=== PATIENT | male | born 1970 | race Caucasian/White ===

== ENCOUNTER → 2020-11-01 | Outpatient (REF) | payer OTHER ==
[2020-11-01 17:53] LABS: BACTERIA, URINE AUTO NEGATIVE (NEGATIVE); RBC, URINE AUTO 0 /HPF (0-3); SQUAMOUS EPITHELIAL CELL UR AU 0 /HPF (0-6); WBC, URINE AUTO 0 /HPF (0-3)
== END ==
LOC: M LAB REF 17:16
PROVIDERS: ATTEND Internal Medicine Nephrology
DX: N18.31 Chronic kidney disease, stage 3a (principal)

== ENCOUNTER → 2021-01-17 | Outpatient (REF) | LOC: M LAB LCGH 10:14 | PROVIDERS: ATTEND Internal Medicine | DX: Z00.00 Encounter for general adult medical examination without abnormal findings (principal) ==

== ENCOUNTER → 2021-03-15 | Outpatient (CLI) | payer BC, OTHER ==
[~2021-03-15] MED LIST: ALLO300T2; LOSA100T50; MECL-86; METO1TAB7; MULT1TAB7 PO
--- NOTE | 2021-03-15 09:12 | REP ---
INDICATION: SPLENOMEGALY. COMPARISON: None. TECHNIQUE: Real-time sonographic evaluation of the left upper quadrant attention spleen FINDINGS: The spleen measures 10.7 x 3.3 x 10.3 cm. There is no evidence of splenomegaly or free fluid in left upper quadrant. The right kidney was seen to measure 11.1 x 5.1 x 5.3 cm. In the superior pole region there is a complex elongated 2 x 1 x 1.1 cm sized mixed but predominantly hypoechoic structure which exhibits some posterior wall enhancement and increased through transmission. IMPRESSION: 1. There is no evidence of splenomegaly. 2. Complex appearing cyst superior pole left kidney. Pre and postcontrast enhanced CT is recommended for complete evaluation. <Electronically signed by Nathan Vo > 03/15/21 [id number]
== END ==
LOC: M RAD 08:44
PROVIDERS: ATTEND Internal Medicine Hematology & Oncology
DX: N28.1 Cyst of kidney, acquired (principal)

== ENCOUNTER → 2021-07-31 | Outpatient (CLI) | payer BC, OTHER ==
[~2021-07-31] MED LIST changes: -ALLO300T2; +ALLO300T2 PO; +LOSA100T45 PO; -LOSA100T50; -MECL-86; +MECL-86 PO; -METO1TAB7; +METO1TAB7 PO
== END ==
LOC: M RAD 10:20
PROVIDERS: ATTEND Specialist
DX: N28.1 Cyst of kidney, acquired (principal)

== ENCOUNTER → 2021-08-15 | Outpatient (CLI) | payer BC, OTHER | LOC: M LAB 10:14 | PROVIDERS: ATTEND Internal Medicine | DX: Z12.5 Encounter for screening for malignant neoplasm of prostate (principal) ==

== ENCOUNTER → 2021-08-15 | Outpatient (CLI) | payer BC, OTHER ==
[2021-08-15 12:40] LABS: BASO # 0.1 10^3/uL (0.0-0.2); BASO % 0.9 % (0.0-1.0); EOS # 0.2 10^3/uL (0.0-0.5); HEMATOCRIT 50.2 % (42.0-52.0); HEMOGLOBIN 16.2 g/dl (13.5-17.5); LYMPH # 1.8 10^3/uL (1.5-5.0); LYMPH % 32.4 % (24.0-44.0); MEAN CORPUSCULAR HEMOGLOBIN 29.1 pg (27.0-33.0); MEAN CORPUSCULAR HGB CONC 32.3 g/dl (32.0-36.5); MEAN CORPUSCULAR VOLUME 90.1 fl (80.0-96.0); MONO # 0.6 10^3/uL (0.0-0.8); MONO % 11.2 % (2.0-8.0); NEUTROPHILS % 52.3 % (36.0-66.0); PLATELET COUNT, AUTOMATED 212 10^3/uL (150-450); RED BLOOD COUNT 5.57 10^6/uL (4.30-6.10); WHITE BLOOD COUNT 5.7 10^3/uL (4.0-10.0)
[2021-08-19 19:07] LABS: ERYTHROPOIETIN 15.7 mIU/mL (2.6-18.5)
== END ==
LOC: M LAB 10:11
PROVIDERS: ATTEND Internal Medicine Hematology & Oncology
DX: D58.2 Other hemoglobinopathies (principal)

== ENCOUNTER → 2021-09-19 | Outpatient (CLI) | payer BC, OTHER ==
[2021-09-19 11:49] LABS: BASO # 0.1 10^3/uL (0.0-0.2); BASO % 0.9 % (0.0-1.0); EOS # 0.1 10^3/uL (0.0-0.5); EOS % 2.4 % (0.0-3.0); HEMATOCRIT 53.6 % (42.0-52.0); HEMOGLOBIN 17.4 g/dl (13.5-17.5); LYMPH # 1.6 10^3/uL (1.5-5.0); LYMPH % 27.9 % (24.0-44.0); MEAN CORPUSCULAR HEMOGLOBIN 28.8 pg (27.0-33.0); MEAN CORPUSCULAR HGB CONC 32.5 g/dl (32.0-36.5); MEAN CORPUSCULAR VOLUME 88.7 fl (80.0-96.0); MONO # 0.6 10^3/uL (0.0-0.8); MONO % 9.7 % (2.0-8.0); NEUTROPHILS # 3.4 10^3/uL (1.5-8.5); NEUTROPHILS % 58.9 % (36.0-66.0); PLATELET COUNT, AUTOMATED 213 10^3/uL (150-450); RED BLOOD COUNT 6.04 10^6/uL (4.30-6.10); WHITE BLOOD COUNT 5.8 10^3/uL (4.0-10.0)
== END ==
LOC: M LAB 10:30
PROVIDERS: ATTEND Radiology Radiation Oncology
DX: D58.2 Other hemoglobinopathies (principal)

== ENCOUNTER → 2022-02-08 | Outpatient (REF) | payer OTHER ==
[2022-02-08 19:49] LABS: APPEARANCE, URINE MANUAL CLEAR (CLEAR); COLOR, URINE MANUAL YELLOW (YELLOW)
[2022-02-08 19:51] LABS: BILIRUBIN, URINE MANUAL NEGATIVE (NEGATIVE); BLOOD URINE MANUAL POSITIVE (NEGATIVE); GLUCOSE, URINE (UA) MANUAL NEGATIVE (NEGATIVE); KETONE, URINE MANUAL NEGATIVE (NEGATIVE); LEUKOCYTE ESTERASE, URINE MAN NEGATIVE (NEGATIVE); NITRITE, URINE MANUAL NEGATIVE (NEGATIVE); PROTEIN, URINE MANUAL NEGATIVE (NEGATIVE); SPECIFIC GRAVITY,URINE MANUAL 1.015 (1.002-1.035); UROBILINOGEN, URINE MANUAL NORMAL (NORMAL)
[2022-02-08 20:12] LABS: RBC, URINE 20-30 /hpf (0-3); SQUAMOUS EPITHELIAL CELL URINE SMALL AMOUNT /hpf (SMALL AMT); WBC, URINE 0-1 /hpf (0-3)
[2022-02-08 20:13] LABS: BACTERIA, URINE NONE SEEN; HYALINE CAST, URINE 0-1 /lpf (0-1); MUCUS, URINE MOD AMOUNT (NEGATIVE)
[2022-02-08 20:14] LABS: AMORPHOUS SEDIMENT, URINE SMALL AMOUNT (NEGATIVE)
== END ==
LOC: M SMT 16:58
PROVIDERS: ATTEND Physician Assistant
DX: R31.9 Hematuria, unspecified (principal)

== ENCOUNTER → 2024-02-28 | Outpatient (CLI) | payer BC ==
[~2024-02-28] MED LIST changes: +ISOVUE-370 76% 100ML VIAL ONE; -LOSA100T45 PO; +LOSA100T46 PO
== END ==
LOC: M PLAIMG 10:31
PROVIDERS: ATTEND Internal Medicine Nephrology
DX: R31.9 Hematuria, unspecified (principal); K57.90 Diverticulosis of intestine, part unspecified, without perforation or abscess without bleeding; K59.00 Constipation, unspecified; R93.89 Abnormal findings on diagnostic imaging of other specified body structures
CPT/HCPCS: 74178; Q9967